=== PATIENT | female | born 1990 | race Caucasian/White ===

== ENCOUNTER 2021-06-08 13:06 | Emergency (ER) | payer SELFPAY ==
[2021-06-08] MEDS ORDERED: Sulfameth/Trimethoprim DS 800-160mg TAB ONE (14:30)
== END 2021-06-08 14:32 | disposition home or self-care (01) ==
LOC: BURERS 13:06
DX: L03.011 Cellulitis of right finger (principal); F17.210 Nicotine dependence, cigarettes, uncomplicated
CPT/HCPCS: 99283

== ENCOUNTER 2022-04-13 06:59 | Emergency (ER) | payer OTHER, SELFPAY ==
[2022-04-13] MEDS ORDERED: Ketorolac Tromethamine 30 MG/ML VIAL ONE (07:30)
== END 2022-04-13 08:28 | disposition home or self-care (01) ==
LOC: BURERS 06:59
DX: G89.29 Other chronic pain (principal); M54.50 Low back pain, unspecified; F17.210 Nicotine dependence, cigarettes, uncomplicated
CPT/HCPCS: 96372; 99283; J1885